=== PATIENT | male | born 1970 | race Caucasian/White ===

== ENCOUNTER 2019-11-14 15:53 | Emergency (ER) | payer OTHER, BC ==
[2019-11-14] MEDS ORDERED: Diphtheria,Pertussis(Acell),Tetanus Vaccine 0.5 ML Syringe IM ONE (16:19)
--- NOTE | 2019-11-14 16:22 | EDM.PDOC ---
ED HPI GENERAL MEDICAL PROBLEM - General Chief Complaint: Head Injury Stated Complaint: LACERATIONTON HEAD Time Seen by Provider: 11/14/19 16:11 Source of Information: Reports: Patient - History of Present Illness INITIAL COMMENTS - FREE TEXT/NARRATIVE: History of present illness: 49-year-old male presenting with head injury. Unclear if the patient had a syncopal event and fell several feet from a ladder and struck his head or fell and struck his head and then had loss of consciousness, however he has no recall of the event whatsoever, and he does not even remember starting to climb up to the ladder. He reports that he had been feeling fine throughout the day today and had had no dizziness, chest pain, difficulty breathing, recent illness, lack of p.o. intake or change in his usual medication dosage. Review of systems: As per history of present illness and below otherwise all systems reviewed and negative. Past medical history: As per history of present illness and as reviewed below otherwise noncontributory. Hypertension, prediabetes Surgical history: As per history of present illness and as reviewed below otherwise noncontributory. Toe amputation, appendicitis Social history: No reported history of drug or alcohol abuse. Rare alcohol, never smoker Family history: As per history of present illness and as reviewed below otherwise noncontributory. Physical exam: GEN: no acute distress, well appearing HEENT: 2 cm scalp laceration with minimal bleeding, minimally tender, otherwise normocephalic, mucous membranes moist, Neck: supple, nontender, trachea midline. Lungs: No respiratory distress. Heart: RRR Abdomen: Soft, nondistended, nontender. Back: nontender, no midline tenderness in the C, T or L-spine, there is a midline area of swelling that is erythematous with superficial abrasion in this area but nontender. 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 The remainder of upper extremities are atraumatic, nontender and unremarkable. Neurovascularly intact. Neuro: Awake, alert, oriented. Neuro Exam nonfocal. Skin: warm, dry, no lesions, 2 cm scalp laceration as above, abrasions to both elbows. After closer inspection when the wound was irrigated, there are actually 2 separate lacerations of the posterior scalp one 2 cm , one 1 cm adjacent to each other. Diagnostics: Labs, CT scan, EKG Therapeutics: [] MDM: Impression: [] Plan: [] Definitive disposition and diagnosis as appropriate pending reevaluation and review of above. - Related Data Allergies Allergy/AdvReac Type Severity Reaction Status Date / Time No Known Allergies Allergy Verified 11/14/19 16:03 Home Meds: Home Meds Enalapril [Vasotec] 10 mg PO BID 11/14/19 [History] amLODIPine Besylate [Amlodipine Besylate] 10 mg PO DAILY 11/14/19 [History] metFORMIN HCl [Metformin HCl] 1,000 mg PO DAILY 11/14/19 [History] Past Medical History HEENT History: Reports: None Cardiovascular History: Reports: Hypertension Gastrointestinal History: Reports: None Musculoskeletal History: Reports: None Endocrine/Metabolic History: Reports: Other (See Below) Other Endocrine/Metabolic History: Borderline Diabetis per patient's report - Infectious Disease History Infectious Disease History: Reports: Chicken Pox - Past Surgical History Cardiovascular Surgical History: Reports: None GI Surgical History: Reports: Appendectomy Endocrine Surgical History: Reports: None Musculoskeletal Surgical History: Reports: Other (See Below) Other Musculoskeletal Surgeries/Procedures:: Right 2nd toe amputation Social & Family History - Family History Family Medical History: Noncontributory - Tobacco Use Smoking Status *Q: Never Smoker Second Hand Smoke Exposure: No - Caffeine Use Caffeine Use: Reports: Energy Drinks - Recreational Drug Use Recreational Drug Use: No ED ROS GENERAL - Review of Systems Review Of Systems: See Below (See HPI) ED EXAM, SKIN/RASH Exam: See Below (See HPI) ED SKIN PROCEDURES - Laceration/Wound Repair Occipital Appearance: Superficial, Clean Skin Prep: Chlorhexidine (Hibiciens) Exploration/Debridement/Repair: Wound Explored, Explored to Base, No Foreign Material Found Closed with: [place]/Wound length In cm: 2 # of Sutures: 3 Midline scalp Appearance: Superficial, Clean Skin Prep: Chlorhexidine (Hibiciens) Exploration/Debridement/Repair: Wound Explored, Explored to Base Closed with: [place]/Wound length In cm: 1 # of Sutures: 1 EKG INTERPRETATION EKG Interpretation Comments: EKG performed today at 4:16 PM, sinus rhythm, rate 63, left atrial enlargement, QTC 439, no acute ischemia, no STEMI. Interpreted by me. Course - Vital Signs Text/Narrative:: Patient presenting with fall and closed head injury, unknown mechanism of injury. Patient has no recall. Appears mildly confused and repetitive questioning but he is actually ANO x3. CT scan shows subarachnoid hemorrhage bilaterally. Suspect the patient had a bleed and then syncopized and fell and struck his head. We will transfer for neurosurgery evaluation. Nearest facility [facility] Case was discussed with both neurosurgeon and ER physician. Accepted for transfer. Will be sent via air. Whether unable to fly by rotor and therefore will be flown by fixed wing aircraft. Updated the patient's as well at his request. Last Recorded V/S: Last Vital Signs Temp 98.8 F 11/14/19 16:05 Pulse 73 11/14/19 18:18 Resp 16 11/14/19 18:18 BP 171/105 H 11/14/19 18:18 Pulse Ox 95 11/14/19 18:18 - Orders/Labs/Meds Orders: Active Orders 24 hr Category Date Time Status DME for Discharge [COMM] Stat Oth 11/14/19 18:16 Ordered Labs: Laboratory Tests 11/14/19 11/14/19 Range/Units 17:41 17:41 WBC 14.37 H (4.0-11.0) K/uL RBC 4.82 (4.50-5.90) M/uL Hgb 14.5 (13.0-17.0) g/dL Hct 43.7 (38.0-50.0) % MCV 90.7 (80.0-98.0) fL MCH 30.1 (27.0-32.0) pg MCHC 33.2 (31.0-37.0) g/dL RDW Std Deviation 42.6 (28.0-62.0) fl RDW Coeff of Tamia 13 (11.0-15.0) % Plt Count 267 (150-400) K/uL MPV 9.80 (7.40-12.00) fL Neut % (Auto) 85.2 H (48.0-80.0) % Lymph % (Auto) 10.8 L (16.0-40.0) % [facility] [facility] % (Auto) 3.3 (0.0-15.0) % Eos % (Auto) 0.5 (0.0-7.0) % Baso % (Auto) 0.2 (0.0-1.5) % Neut # (Auto) 12.2 H (1.4-5.7) K/uL Lymph # (Auto) 1.6 (0.6-2.4) K/uL [facility] # (Auto) 0.5 (0.0-0.8) K/uL Eos # (Auto) 0.1 (0.0-0.7) K/uL Baso # (Auto) 0.0 (0.0-0.1) K/uL Nucleated RBC % 0.0 /100WBC Nucleated RBCs # 0 K/uL Sodium 141 (136-148) mmol/L Potassium 4.0 (3.5-5.1) mmol/L Chloride 106 (98-107) mmol/L Carbon Dioxide 26.8 (21.0-32.0) mmol/L BUN 21 H (7.0-18.0) mg/dL Creatinine 1.1 (0.8-1.3) mg/dL Est Cr Clr Drug Dosing 98.64 mL/min Estimated GFR (MDRD) > 60.0 ml/min Glucose 141 H (74-106) mg/dL Calcium 8.9 (8.5-10.1) mg/dL Troponin I < 0.050 (0.000-0.056) ng/mL Meds: Medications Discontinued Medications Generic Name Dose Route Start Last Admin Trade Name Freq PRN Reason Stop Dose Admin Diphtheria/Tetanus/Acell Pertussis 0.5 ml 11/14/19 16:19 11/14/19 16:32 Adacel IM 11/14/19 16:20 0.5 ml .ONCE ONE Administration Sodium Chloride 10 ml 11/14/19 16:57 11/14/19 17:51 Saline Flush FLUSH 10 ml ASDIRECTED PRN Administration Keep Vein Open Sodium Chloride 2.5 ml 11/14/19 16:57 11/14/19 17:51 Saline Flush FLUSH 2.5 ml ASDIRECTED PRN Administration Keep Vein Open - Re-Assessments/Exams Free Text/Narrative Re-Assessment/Exam: 11/14/19 16:56 Patient was brought back from the x-ray department declining the hand x-ray that was ordered. He reports that his hand is feeling better and he has no pain at this time. He declined x-ray. I did reexamine the patient. He has no base of the thumb tenderness. He has very minimal hand tenderness and full range of motion which he now reports is painless. Will continue to monitor, however we will respect the patient's choice at this time to decline imaging. 11/14/19 17:47 CT brain shows cortical hemorrhage in both inferior frontal lobes as well as small amount of subarachnoid blood in the inferior frontal lobes and interhemispheric falx. Suspect the patient had subarachnoid bleed and syncopal episode/fell and had head trauma. Discussed with patient and discussed need for transfer. Patient agrees with this plan. He still has no recall of the injury. Case also discussed with transfer center at [facility] and neurosurgeon, Dr. Slade 11/14/19 17:51 Dr Slade accepts. Case also discussed with ED physician, Dr. Small, accepts case, requests to at tempt CT C spine if able to do so before transport arrival. 11/14/19 18:22 Patient tolerated laceration repair well. No distress. Patient was also placed in cushioned rigid c-collar. 11/14/19 18:45 Patient gave permission to discuss the results and plan/disposition with the patient's . She has arrived in the emergency department. Discussed all findings with his . 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 Discussed need for transfer. She agrees with the plan. Departure - Departure Time of Disposition: 17:57 Disposition: DC/Tfer to [facility] 02 Clinical Impression: Subarachnoid bleed, Closed head injury - Discharge Information Referrals: Jesus Farnsworth MD [Primary Care Provider] - Forms: ED Department Discharge Critical Care Note - Critical Care Note Total Time (mins): 35 Comments: Subarachnoid hemorrhage, possibility of decline, need for rapid neurosurgical evaluation. Sepsis Event Note (ED) - Evaluation Sepsis Screening Result: No Definite Risk - My Orders Last 24 Hours: My Active Orders 11/14/19 18:16 DME for Discharge [COMM] Stat - Assessment/Plan Last 24 Hours: My Active Orders 11/14/19 18:16 DME for Discharge [COMM] Stat
[2019-11-14] MEDS ORDERED: Sodium Chloride 0.9% 2.5 ML Syringe FLUSH PRN (16:57)
[2019-11-14] MEDS ORDERED: Sodium Chloride 0.9% 10 ML Syringe FLUSH PRN (16:57)
--- NOTE | 2019-11-14 17:02 | CT ---
Head CT Technique: Multiple axial sections through the brain were obtained. Intravenous contrast was not utilized. Comparison: No previous intracranial imaging is available. Findings: Slight cortical hemorrhages are seen within the inferior frontal lobes on both sides. Mild amount of subarachnoid blood is also noted within the inferior frontal regions. Mild amount of subarachnoid blood is seen within the interhemispheric falx anteriorly. No other intracranial hemorrhage is appreciated. Ventricles along with basal cisterns and sulci over the convexities are within normal limits. Soft tissue swelling is seen posteriorly within the scalp. No acute calvarial finding is appreciated. Visualized mastoid sinuses and paranasal sinuses show nothing acute. Impression: 1. Mild areas of cortical hemorrhage within both inferior frontal lobes as well as small amount of subarachnoid blood within the inferior frontal lobes and adjacent to the anterior aspect of interhemispheric falx. 2. Soft tissue swelling within the posterior scalp. 3. No additional abnormality is appreciated. Diagnostic code #5 Study was dictated in MDT
[2019-11-14 18:23] LABS: BLOOD UREA NITROGEN,BUN 21 mg/dL (7.0-18.0); CARBON DIOXIDE,CO2 26.8 mmol/L (21.0-32.0); CHLORIDE,CL 106 mmol/L (98-107); GLUCOSE RANDOM 141 mg/dL (74-106); SODIUM,NA 141 mmol/L (136-148)
--- NOTE | 2019-11-14 18:59 | CT ---
CT cervical spine Technique: Multiple axial sections were obtained from above C1 inferiorly to the bottom of T3. Reconstructed sagittal and coronal images were reviewed. Comparison: No prior cervical spine imaging is available. Findings: Degenerative change is noted between the dens and anterior arch of C1. Mild disc space narrowing is scattered throughout the cervical spine and upper thoracic spine. Scattered anterior endplate osteophytes are seen. Slight posterior spurring is noted at C4-C5. Ligamentum nuchal calcification is seen. Mild right-sided neural foraminal stenosis is noted at C3-C4. Other neural foramina are patent. No bony central canal stenosis is seen. Mild degenerative apophyseal change is scattered throughout the cervical and upper thoracic spine. No fracture is identified. No abnormal subluxation is seen. Impression: 1. Degenerative change as noted above. Ligamentum nuchal calcification which appears chronic. 2. No acute fracture or subluxation is seen. Diagnostic code #2 Study was dictated in MDT
== END 2019-11-14 18:50 ==
LOC: MW.ED 15:53
DX: S06.6X9A Traumatic subarachnoid hemorrhage with loss of consciousness of unspecified duration, initial encounter (principal); S01.01XA Laceration without foreign body of scalp, initial encounter; I10 Essential (primary) hypertension; Z23 Encounter for immunization; Z79.899 Other long term (current) drug therapy; W11.XXXA Fall on and from ladder, initial encounter
CPT/HCPCS: 12002; 36415; 70450; 70450-26; 72125; 72125-26; 80048; 84484; 85025; 90471; 90715; 93005; 99285-25